=== PATIENT | female | born 1955 ===

== ENCOUNTER 2022-12-23 08:07 | Inpatient (IN) | payer OTHER ==
[~2022-12-23] VITALS: Ht 149.9 cm; Wt 170.6 kg
[2022-12-23] MEDS ORDERED: COZAAR25 MG PO (09:05)
[2022-12-23] MEDS ORDERED: TRADJENTA5 MG PO (09:05)
[2022-12-23] MEDS ORDERED: JARDIANCE25 MG PO (09:06)
[2022-12-23] MEDS ORDERED: GLUMETZA1000 MG PO (09:06)
[2022-12-25] MEDS ORDERED: CLOTRIMAZOLE-BE15 G1 (08:44)
[2022-12-25] MEDS ORDERED: ALPRAZOLAM0.25 MG (08:44)
[2022-12-25] MEDS ORDERED: FAMOTIDINE40 MG (08:45)
[2022-12-25] MEDS ORDERED: OMEPRAZOLE40 MG (08:45)
[2022-12-25] MEDS ORDERED: ROSUVASTATIN CAL5 MG (08:45)
[2022-12-25] MEDS ORDERED: LOSARTAN-HCTZ1 EACH (08:45)
[2022-12-25] MEDS ORDERED: POTASSIUM CITR15 MEQ (08:45)
[2022-12-25] MEDS ORDERED: VASOFLEX TABLE1 EACH (08:45)
[2022-12-25] MEDS ORDERED: LATANOPROST2.5 ML (08:45)
[2022-12-25] MEDS ORDERED: HYDROCHLOROTH12.5 MG (08:45)
[2022-12-25] MEDS ORDERED: MELATONIN10 M2 (08:45)
== END 2022-12-27 13:39 | disposition home or self-care (01) | DRG 330 ==
LOC: SURG 12-25 05:15 → O/R 12-25 05:15 → SURG 12-25 09:30
PROVIDERS: ADMIT Colon & Rectal Surgery; ATTEND Colon & Rectal Surgery
PROC: 0DBP4ZZ Excision of Rectum, Percutaneous Endoscopic Approach (ICD-10-PCS; 2022-12-25)
PROC: 0DJD8ZZ Inspection of Lower Intestinal Tract, Via Natural or Artificial Opening Endoscopic (ICD-10-PCS; 2022-12-25)
PROC: 0DTN4ZZ Resection of Sigmoid Colon, Percutaneous Endoscopic Approach (ICD-10-PCS; principal; 2022-12-25 11:00)
DX: K57.32 Diverticulitis of large intestine without perforation or abscess without bleeding (principal); K92.1 Melena; Z20.822 Contact with and (suspected) exposure to COVID-19